=== PATIENT | female | born 1945 | race Caucasian/White ===

== ENCOUNTER → 2022-09-09 | Outpatient (CLI) | payer MEDICARE ==
--- NOTE | 2022-09-09 11:56 | XR ---
EXAMINATION TYPE: XR shoulder complete LT DATE OF EXAM: 09/09/2022 11:04 AM INDICATION: Patient age:Female; 77 years old; Reason for study: [id number]; COMPARISON: None TECHNIQUE: The left shoulder was examined in AP, internally rotated and scapular Y projections. . FINDINGS: No evidence of acute osseous pathology, joint dislocation, or soft tissue swelling. The remaining por tions of the visualized chest are unremarkable. IMPRESSION: No acute osseous pathology.
== END | disposition home or self-care (01) ==
LOC: RADXRMAIN 10:49
PROVIDERS: ATTEND Internal Medicine
DX: M25.512 Pain in left shoulder (principal)

== ENCOUNTER → 2022-09-13 | Outpatient (CLI) | payer MEDICARE ==
--- NOTE | 2022-09-13 09:10 | CT ---
EXAMINATION TYPE: CT brain wo con CT DLP: 1100.5 mGycm, Automated exposure control for dose reduction was used. DATE OF EXAM: 09/13/2022 8:15 AM COMPARISON: None. CLINICAL INDICATION:Female, 77 years old with history of R519, Headache/pressure LT side of head x1 m onth TECHNIQUE: Brain: Axial CT images of the brain were obtained with coronal and sagittal reformats created and rev iewed. Contrast used: None. Oral contrast used: None. FINDINGS: Brain: Extra-axial spaces: No abnormal extra-axial fluid collections. Ventricular system: Within normal limits Cerebral parenchyma: No acute intraparenchymal hemorrhage or mass effect. The fregoso-white junction is well differentiated. Cerebellum: Unremarkable. Mass effect: No evidence of midline shift. Intracranial vasculature: Atherosclerotic calcifications of the intracranial vessels. Soft tissues: Normal. Calvarium/osseous structures: No depressed skull fracture. Paranasal sinuses and mastoid air cells: Mild scattered paranasal sinus disease. Visualized orbits: Bilateral aphakia IMPRESSION: No acute intracranial process.
== END | disposition home or self-care (01) ==
LOC: RADCTMAIN 07:20
PROVIDERS: ATTEND Internal Medicine
DX: R51.9 Headache, unspecified (principal)
CPT/HCPCS: 70450